=== PATIENT | female | born 2005 | race Caucasian/White ===

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

== ENCOUNTER 2024-10-04 09:45 | Emergency (ER) | payer MEDICAID, SELFPAY ==
[2024-10-04] VITALS (12 sets, daily range): BP systolic 103–115; BP diastolic 66–84; PULSE 72–103; RESP 16–23; TEMP 36.5; O2SAT 98–100
--- NOTE | 2024-10-04 10:15 | W.ED.GENAD ---
Discharge Plan Disposition Patient Disposition: Home Condition: Stable Discharge Details Clinical Impression: Pancreatitis Primary Care Provider: None,None ED Provider: Marina Daugherty Home Meds and New Rx's Prescriptions: Continued albuterol sulfate [Ventolin HFA] 90 mcg/actuation HFA aerosol inhaler 2 puff inhalation Q4H PRN (Reason: shortness of breath or wheezing) Qty: 8.5 2RF budesonide-formoterol [Symbicort] 160-4.5 mcg/actuation HFA aerosol inhaler 2 puff inhalation BID Qty: 10.2 0RF Rx Instructions: 2 puffs twice a day and can use as needed prior to sports or for shortness of breath No Action (DME) Aerochamber MV Spacer See Rx Instructions .ROUTE .MEDSUPPLY Qty: 1 0RF Rx Instructions: As directed amitriptyline 10 mg tablet 10 mg PO QHS Qty: 30 0RF cyproheptadine 4 mg tablet 4 mg PO QHS Qty: 60 0RF Rx Instructions: Take 1 tab daily at night magnesium oxide 200 mg magnesium tablet 200 mg PO BID Qty: 60 2RF Rx Instructions: Take 1 tab twice daily rizatriptan 5 mg tablet 5 mg PO ONCE Qty: 14 0RF Rx Instructions: Take 1 tab at onset of headache, max 1 tab in 24 hours medroxyprogesterone [Depo-Provera] 150 mg/mL syringe 150 mg IM [id number] Qty: 1 2RF Discharge Instructions Instructions: Pancreatitis (DC) Additional Instructions: You were seen in the emergency department today for evaluation of abdominal pain, and were found on your laboratory studies to have pancreatitis. You had a CT scan that was reassuring and did not show signs of gallstones, which is one of the common causes of pancreatitis. The other common causes alcohol. I recommend that you avoid alcohol intake, and you may wish to trial a clear liquid diet for the next few days, especially if you find the eating other foods causes you too much pain. It is very important that you stay well-hydrated, please use water, juice, sports drinks, etc. You should utilize Tylenol to manage your pain, and can take 2 tablets of regular strength or extra strength Tylenol every 6 hours. Please do not exceed 4000 mg of Tylenol in a 24-hour period. I provided you with a refill of your inhalers and you have a referral to establish with a primary care provider here in this area. You should contact them to schedule a follow-up visit to discuss this visit and any symptoms that change, worsen, or persist. You can return to the emergency department for fever or chills, sudden or severe change or worsening of your abdominal pain, or nausea and vomiting that prevents you from maintaining your hydration. Thank you for allowing us to be part of your care. Discharge Data Discharge Date/Time-TO BE ENTERED AT DEPARTURE: 10/04/24 11:51 HPI General Mode of arrival: ambulatory. Date/Time Provider Initiated Documentation: 10/04/24 09:46. Limitations to Documentation: no limitations. Information obtained by: patient, family and old records reviewed. HPI Narrative: This is a 19-year-old female patient with a past medical history significant for mild persistent asthma, ADHD, presenting for evaluation of abdominal pain. The patient reports that she has had pain similar to this, which is located in her left upper quadrant for about a year. She reports that she went to a hospital and was diagnosed with GERD/abdominal ulcers, was started on Prilosec. She states that she felt quite well after that visit but stopped taking the medication after some time. She reports that 4 days ago her pain returned in that area, it feels very similar to her past pain. She has tried marijuana for management of the pain to good effect, states that eating seems to make it worse. She reports no associated symptoms such as nausea, vomiting, fever, constipation, diarrhea, or dysuria. The pain does not radiate into her back, and is currently rated at a 4 out of 10. The patient and her partner are traveling, she states that she has had difficulty maintaining a regular primary care visit. She uses the Depo shot for prevention but does not think that she has had one in the last year. Related Data Home Medications ?Medication ?Instructions ?Recorded ?Confirmed inhalational spacing device #1 ea 05/09/22 10/04/24 (Aerochamber MV spacer) cyproheptadine 4 mg tablet 4 mg PO QHS #60 tabs 06/11/22 10/04/24 magnesium oxide 200 mg PO BID #60 tabs 06/11/22 10/04/24 rizatriptan 5 mg tablet 5 mg PO ONCE #14 tabs 06/19/22 10/04/24 amitriptyline 10 mg tablet 10 mg PO QHS #30 tabs 07/20/22 10/04/24 medroxyprogesterone 150 mg/mL 150 mg IM [id number] #1 mL 07/23/22 10/04/24 intramuscular syringe (Depo-Provera) albuterol sulfate 90 mcg/actuation 2 puff inhalation Q4H PRN 10/04/24 aerosol inhaler (Ventolin HFA) shortness of breath or wheezing #8.5 grams budesonide-formoterol HFA 160 2 puff inhalation BID #10.2 grams 10/04/24 mcg-4.5 mcg/actuation aerosol inhaler (Symbicort) Previous Rx's ?Medication ?Instructions ?Recorded inhalational spacing device #1 ea 05/09/22 (Aerochamber MV spacer) cyproheptadine 4 mg tablet 4 mg PO QHS #60 tabs 06/11/22 magnesium oxide 200 mg PO BID #60 tabs 06/11/22 rizatriptan 5 mg tablet 5 mg PO ONCE #14 tabs 06/19/22 amitriptyline 10 mg tablet 10 mg PO QHS #30 tabs 07/20/22 medroxyprogesterone 150 mg/mL 150 mg IM [id number] #1 mL 07/23/22 intramuscular syringe (Depo-Provera) albuterol sulfate 90 mcg/actuation 2 puff inhalation Q4H PRN 10/04/24 aerosol inhaler (Ventolin HFA) shortness of breath or wheezing #8.5 grams budesonide-formoterol HFA 160 2 puff inhalation BID #10.2 grams 10/04/24 mcg-4.5 mcg/actuation aerosol inhaler (Symbicort) Allergies Allergy/AdvReac Type Severity Reaction Status Date / Time methylphenidate Allergy Intermediate Unknown Verified 10/04/24 09:50 adhesive Allergy Mild Skin Rash Verified 10/04/24 09:50 General Stated Complaint: Abd Prob ALEXA: 3 Exam Narrative Exam Narrative: Gen: Awake and alert, in no apparent distress HEENT: Non-icteric sclera Neck: Supple Lungs: No apparent respiratory distress, normal respiratory effort. CV: Appears well perfused, heart with regular rate and rhythm, strong distal pulses Abdomen: Non-distended, soft, tender to palpation in the left upper quadrant without rigidity, rebound, or guarding. No overlying skin changes MSK: Moves 4 extremities without apparent limitation in ROM, no CVA tenderness Skin: Visualized skin without rashes, cyanosis. Neuro: Normal Gait, no obvious focal deficits or facial asymmetry. Speaks in full, clear sentences. Psych: Appropriate for situation. Course Vital Signs Vital signs: Vital Signs Temperature 36.5 C 10/04/24 09:46 Pulse 85 10/04/24 09:46 Respiratory Rate 16 10/04/24 09:46 Blood Pressure 107/66 10/04/24 09:46 Pulse Oximetry 98 10/04/24 09:46 Temperature 36.5 C 10/04/24 09:51 Temperature Source Oral 10/04/24 09:51 Pulse 85 10/04/24 09:51 Respiratory Rate 16 10/04/24 09:51 Blood Pressure 107/66 10/04/24 09:51 Pulse Oximetry 98 10/04/24 09:51 Medical Decision Making This is a 19-year-old female patient presenting for evaluation of abdominal pain. My differential includes, but is not limited to, gastritis/PUD, gastroenteritis, pancreatitis, cholecystitis and gallbladder pathology, hepatitis, appendicitis, diverticulitis. No surgical history nor constipation to increase my concern for small bowel obstruction. Considered urinary pathology including UTI, nephrolithiasis. Considered mesenteric ischemia, aortic pathology, though this is less concerning based on the patient's history and physical exam. Considered ectopic , PID/TOA, ovarian cyst, ovarian torsion. Overall, the patient appears quite comfortable and has a benign abdominal examination and reassuring vitals. We will provide her with a dose of Mylanta and obtain laboratory studies to include CBC, CMP, magnesium, lipase, urinalysis and urine . At this time I do not see indication based on her hemodynamic stability and history and exam to proceed with advanced imaging. - test negative, urinalysis noninfectious. I independently interpreted the laboratory studies, which show no significant leukocytosis, anemia, or thrombocytopenia. The chemistry panel is without evidence of electrolyte abnormality, kidney dysfunction, or liver injury. Her blood glucose is noted to be slightly low at 53, consistent with her reports that she has not yet eaten because it worsens her pain. Her lipase is quite elevated to 310, concerning for pancreatitis. For this reason we will proceed with CT imaging of her abdomen. I will also provide her with some Tylenol for some ongoing pain. The patient does report that she had a small alcoholic beverage on 02 October, states that she is not typically a drinker. She has no personal history of gallstones, though this is certainly a consideration. I reviewed her CT scan, which does not show any pancreatic abnormalities, gallstones or gallbladder wall thickening, some nonspecific bowel changes that may represent enteritis. Enteritis and pancreatitis remain my top differentials. On reassessment, the patient reports her pain is present but controlled, and she is not desiring of any other medications for management. She tolerated oral intake adequately, was provided with some juice given her slightly low blood glucose, though I am reassured by her preserved mentation. The patient is desiring of discharge to home, and I feel this is reasonable in this patient with mild pancreatitis, a benign abdominal examination, and the ability to tolerate p.o. intake. I counseled her on clear liquid diet and pain management, and provided her with a referral to establish with a primary care provider as her most recent provider is no longer practicing in this area. The patient's albuterol inhalers were also refilled for her, and she was counseled on return precautions to include fever or chills, worsening abdominal pain, or inability to tolerate p.o. At this time, the patient has had a full medical evaluation and is safe for discharge to home. They are hemodynamically stable, ambulatory, and tolerating PO. They are understanding of the follow-up plan and return precautions. They left our facility without incident. Marina Daugherty MD [facility] All Active Problems (Updated 10/04/24 @ 11:32 by Marina Daugherty MD) Pancreatitis (Chronic) Migraine headache (Chronic) Vocal cord dysfunction (Acute) per [facility] notes 2021 Iliotibial band tendonitis (Acute) Inattention (Acute) stopped strattera 05/2022 Mild persistent asthma (Acute) follows with [facility] at [facility] (no visit since 11/2021) Encounter for Depo-Provera contraception (Acute) Recurrent epistaxis (Acute) Insomnia (Acute) Deviated nasal septum (Acute) With mild spurring, to the right Hypertrophy of inferior nasal turbinate (Acute) Malocclusion due to mouth breathing (Acute) Medical History Anemia Anxiety Post-op bleeding Syncope Seen by neurology, cardiology, normal w/u has had normal brain MRI in 2020 Surgical History H/O tooth extraction History of tonsillectomy and adenoidectomy Family History Father Hyperlipidemia Neoplasm Social History (Updated 07/20/22 @ 08:10 by Lisa Mendez RN) Smoking/Tobacco Use Status: Never Second Hand Exposure: No Smoking risk assessment performed?: Yes Alcohol Intake: never Drug use: Daily Substance use type: marijuana Adopted: No Foster care: No Education Level: high school Details: [employer] 12th grade - 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
[2024-10-04] MEDS: Mylanta Suspension 30 ML CUP 20 ML PO (10:25)
[2024-10-04 10:27] LABS: Abs Immature Grans 0.01 10^3/uL (0.0-0.06); HCT 42.0 % (36.0-46.0); HGB 14.2 g/dL (11.2-15.7); Immature Grans % 0.1 %; MCH 30.6 pg (27.0-33.0); MCHC 33.8 % (32.0-36.0); MCV 91 fL (80-95); MPV 9.9 fL (8.0-11.0); Platelet Count 238 10^3/uL (130-400); RBC 4.64 10^6/uL (3.93-5.22); RDW 11.9 % (11.7-14.6); RDW-SD 39.8 fL; WBC 7.03 10^3/uL (4.4-10.8)
[2024-10-04 10:38] LABS: Glucose Negative (Negative)
[2024-10-04 10:43] LABS: ALT 17 U/L (14-59); AST 12 U/L (15-37); Albumin 4.0 g/dL (3.4-5.0); Alkaline Phosphatase 75 U/L (46-116); Anion Gap 6.6 mmol/L (3-11); BUN 7 mg/dL (7-18); Bilirubin, Total 0.4 mg/dL (0.2-1.0); CO2 30.4 mmol/L (21.0-32.0); Calcium 9.3 mg/dL (8.5-10.1); Chloride 104 mmol/L (98-107); Estimated GFR 131.70 (mL/min/1.73m2); Glucose 53 mg/dL (74-106); Lipase 310 U/L (<78); Magnesium 1.8 mg/dL (1.8-2.4); Potassium 3.9 mmol/L (3.5-5.1); Sodium 141 mmol/L (136-145); Total Protein 7.5 g/dL (6.4-8.2)
--- NOTE | 2024-10-04 10:45 | DI.CT_ITS ---
Exam(s) CT ABDOMEN PELVIS W EXAM: CT ABDOMEN PELVIS W CLINICAL HISTORY: pancreatitis. TECHNIQUE: Imaging Protocol: Axial computed tomography images with coronal and sagittal reformatted images were created and reviewed CONTRAST MATERIAL: Intravenous: Omnipaque-350 100cc Oral: None COMPARISON: No exams were available for comparison FINDINGS: VISUALIZED LUNG BASES: No nodules nor pleural effusions evident. ABDOMEN: GI: There is no evidence of bowel obstruction, free air, nor abscess. There is abundant fecal material in the colon. No evidence of appendicitis nor diverticulitis.. There are loops of fluid filled nondilated small bowel loops in the abdomen-pelvis. LIVER: There are no focal hepatic lesions evident. No dilated intrahepatic ducts. GALLBLADDER/BILIARY: No obvious gallbladder pathology. CBD is not dilated. PANCREAS: No evidence of pancreatic mass nor dilatation of the pancreatic duct. SPLEEN: Spleen is not enlarged. No obvious intrasplenic lesions. Splenic and portal veins are patent. ADRENALS: There are no significant adrenal masses. KIDNEYS:No cysts evident. No solid renal masses. No calculi nor hydronephrosis.. ABDOMINAL AORTA: Abdominal aorta is not enlarged. LYMPH NODES:There is no retroperitoneal nor paraaortic adenopathy. ABDOMINAL WALL: No evidence of significant anterior abdominal wall nor inguinal hernia. PELVIS: GI: No evidence of appendicitis.No evidence of sigmoid diverticulitis. LYMPH NODES: There is no intrapelvic nor inguinal adenopathy. REPRODUCTIVE: Uterus is anteverted and appears age-appropriate. There is a 2 cm cyst in the left ovary which is probably dominant follicular cysts. No significant right adnexal findings. There is a small amount of fluid in the cul-de-sac which is probably female physiologic. URINARY BLADDER: No calculi nor obvious masses evident OSSEOUS: No fractures and no significant osseous lesions. Sacroiliac joints appear unremarkable. Bone density normal. No osseous lesions. IMPRESSION: 1. No CT evidence of pancreatitis, as per request. 2. Also no evidence of appendicitis nor diverticulitis. 3. There is a 2 cm cyst in the left ovary which is most probably benign physiologic follicular cyst. Small amount of fluid in the cul-de-sac is also most probably female physiologic. Preliminary virtual Radiology report was reviewed RADIATION DOSE DELIVERED: 320.37mGy.cm Total DLP DATA REPOSITORY: All CT scans at this facility are submitted to the National Radiology Data Registry (NRDR) Dose Index Registry (DIR) with the [employer] (ACR). RADIATION OPTIMIZATION: All CT scans at this facility use at least one of these dose optimization techniques: automated exposure control; mA and/or kV adjustment per patient size (includes targeted exams where dose is matched to clinical indication); or iterative reconstruction.
[2024-10-04] MEDS: Normal Saline - Diluent 50 ML VIAL IJ (11:03)
[2024-10-04] MEDS: Omnipaque 350 MG/ML 100 ML BTL 75 ML IJ (11:06)
[2024-10-04] MEDS: Acetaminophen 500 MG TAB 1000 MG PO (11:17)
--- NOTE | 2024-10-04 11:20 | DI.VRAD_ITS ---
PROCEDURE INFORMATION: Exam: CT Abdomen And Pelvis With Contrast Exam date and time: 10/04/2024 10:55 AM Age: 19 years old Clinical indication: Pain; Other: Pancreatitis TECHNIQUE: Imaging protocol: Computed tomography of the abdomen and pelvis with contrast. Contrast material: OMNIPAQUE 350; Contrast volume: 75 ml; Contrast route: INTRAVENOUS (IV); COMPARISON: CR XR CHEST 2V PA LATERAL 09/08/2020 5:22 PM FINDINGS: Liver: Normal. Gallbladder and biliary ducts: Normal. Pancreas: Normal. Spleen: Normal. Adrenal glands: Normal. No mass. Kidneys and ureters: Normal. Stomach and bowel: Several loops of nondilated, gas and fluid-filled small bowel, which is a nonspecific finding, but can be seen with enteritis. Appendix: No evidence of appendicitis. Intraperitoneal space: Small amount of pelvic free fluid, likely physiologic. Vasculature: Unremarkable. No abdominal aortic aneurysm. Lymph nodes: Unremarkable. No enlarged lymph nodes. Urinary bladder: Unremarkable as visualized. Reproductive: 19 mm left ovarian cyst. Bones/joints: No acute abnormality. Soft tissues: Normal. IMPRESSION: 1. Several loops of nondilated, gas and fluid-filled small bowel, which is a nonspecific finding, but can be seen with enteritis. 2. No evidence of acute pancreatitis. Dictated and Authenticated by: Emil Rojas MD. Orderin [facility] Feng Gray MD
== END 2024-10-04 11:51 | disposition home or self-care (01) ==
PROVIDERS: Emergency Provider Emergency Medicine
DX: K85.90 Acute pancreatitis without necrosis or infection, unspecified; R10.30 Lower abdominal pain, unspecified; Z87.09 Personal history of other diseases of the respiratory system
CPT/HCPCS: 99284; 99285; 81025; 36415; 80053; 83690; 74177; 81003; 83735; 85025; J3490

== ENCOUNTER 2024-10-05 22:17 | Emergency (ER) | payer MEDICAID, SELFPAY ==
[2024-10-05] VITALS (13 sets, daily range): BP systolic 101–138; BP diastolic 49–84; PULSE 68–84; RESP 16; TEMP 36; O2SAT 97–100
--- NOTE | 2024-10-05 22:24 | W.ED.GENAD ---
Discharge Plan Disposition Patient Disposition: Home Condition: Stable Discharge Details Clinical Impression: Abdominal pain Primary Care Provider: None,None ED Provider: Seth Peguero Meds and New Rx's Prescriptions: New famotidine 20 mg tablet 20 mg PO BID Qty: 20 0RF pantoprazole 40 mg tablet,delayed release (DR/EC) 40 mg PO DAILY Qty: 30 0RF Continued (DME) Aerochamber MV Spacer See Rx Instructions .ROUTE .MEDSUPPLY Qty: 1 0RF Rx Instructions: As directed amitriptyline 10 mg tablet 10 mg PO QHS Qty: 30 0RF cyproheptadine 4 mg tablet 4 mg PO QHS Qty: 60 0RF Rx Instructions: Take 1 tab daily at night magnesium oxide 200 mg magnesium tablet 200 mg PO BID Qty: 60 2RF Rx Instructions: Take 1 tab twice daily rizatriptan 5 mg tablet 5 mg PO ONCE Qty: 14 0RF Rx Instructions: Take 1 tab at onset of headache, max 1 tab in 24 hours medroxyprogesterone [Depo-Provera] 150 mg/mL syringe 150 mg IM [id number] Qty: 1 2RF albuterol sulfate [Ventolin HFA] 90 mcg/actuation HFA aerosol inhaler 2 puff inhalation Q4H PRN (Reason: shortness of breath or wheezing) Qty: 8.5 2RF budesonide-formoterol [Symbicort] 160-4.5 mcg/actuation HFA aerosol inhaler 2 puff inhalation BID Qty: 10.2 0RF Rx Instructions: 2 puffs twice a day and can use as needed prior to sports or for shortness of breath Discharge Instructions Instructions: Abdominal Pain, Adult ED Additional Instructions: You were seen for recheck due to abdominal pain. Your repeat laboratory studies tonight are much improved and your lipase is almost normal. 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 I would still stick with a liquid/bland diet as before. Reach back out to [facility] for follow-up. Return to ED for any new or worsening pain, fever, persistent vomiting, other concerns. Referrals: [facility] [Provider Group] HPI General Mode of arrival: ambulatory. Date/Time Provider Initiated Documentation: 10/05/24 22:24. Limitations to Documentation: no limitations. Information obtained by: patient and RN notes reviewed. HPI Narrative: Patient returns to ED with worsening abdominal pain after being diagnosed with pancreatitis here in the ED about 36 hours ago. She had presented with abdominal pain yesterday. Lipase was elevated above 300, CT scan was reassuring. Patient was discharged home to use acetaminophen for pain and liquid diet. Patient has remained on the diet as prescribed but got no relief with acetaminophen and began smoking marijuana to try to control the pain. She is unable to take NSAIDs as she has a clotting problem for which she cannot remember the name nor did she get it fully worked up. She does have a tendency to bleed however and was told to avoid NSAIDs. She has had no nausea vomiting or fever. He states that the pain is worse and more diffuse including into the back now. She is still making urine. She was crying this evening and was convinced to return to ED. Related Data Home Medications ?Medication ?Instructions ?Recorded ?Confirmed inhalational spacing device #1 ea 05/09/22 10/05/24 (Aerochamber MV spacer) cyproheptadine 4 mg tablet 4 mg PO QHS #60 tabs 06/11/22 10/05/24 magnesium oxide 200 mg PO BID #60 tabs 06/11/22 10/05/24 rizatriptan 5 mg tablet 5 mg PO ONCE #14 tabs 06/19/22 10/05/24 amitriptyline 10 mg tablet 10 mg PO QHS #30 tabs 07/20/22 10/05/24 medroxyprogesterone 150 mg/mL 150 mg IM [id number] #1 mL 07/23/22 10/05/24 intramuscular syringe (Depo-Provera) albuterol sulfate 90 mcg/actuation 2 puff inhalation Q4H PRN 10/04/24 10/05/24 aerosol inhaler (Ventolin HFA) shortness of breath or wheezing #8.5 grams budesonide-formoterol HFA 160 2 puff inhalation BID #10.2 grams 10/04/24 10/05/24 mcg-4.5 mcg/actuation aerosol inhaler (Symbicort) famotidine 20 mg tablet 20 mg PO BID #20 tabs 10/05/24 pantoprazole 40 mg tablet,delayed 40 mg PO DAILY #30 tabs 10/05/24 release Previous Rx's ?Medication ?Instructions ?Recorded inhalational spacing device #1 ea 05/09/22 (Aerochamber MV spacer) cyproheptadine 4 mg tablet 4 mg PO QHS #60 tabs 06/11/22 magnesium oxide 200 mg PO BID #60 tabs 06/11/22 rizatriptan 5 mg tablet 5 mg PO ONCE #14 tabs 06/19/22 amitriptyline 10 mg tablet 10 mg PO QHS #30 tabs 07/20/22 medroxyprogesterone 150 mg/mL 150 mg IM [id number] #1 mL 07/23/22 intramuscular syringe (Depo-Provera) albuterol sulfate 90 mcg/actuation 2 puff inhalation Q4H PRN 10/04/24 aerosol inhaler (Ventolin HFA) shortness of breath or wheezing #8.5 grams budesonide-formoterol HFA 160 2 puff inhalation BID #10.2 grams 10/04/24 mcg-4.5 mcg/actuation aerosol inhaler (Symbicort) famotidine 20 mg tablet 20 mg PO BID #20 tabs 10/05/24 pantoprazole 40 mg tablet,delayed 40 mg PO DAILY #30 tabs 10/05/24 release Allergies Allergy/AdvReac Type Severity Reaction Status Date / Time methylphenidate Allergy Intermediate Unknown Verified 10/05/24 22:25 adhesive Allergy Mild Skin Rash Verified 10/05/24 22:25 General Stated Complaint: Abd Prob ALEXA: 3 Exam Narrative Exam Narrative: Const: WDWN female in NAD. VS per triage. HEENT: NC/AT. Normal facial exam. Neck: Supple. Trachea midline. Lungs: Normal respiratory effort. Lungs are clear. Cor: RRR without murmur. Good radial pulses. GI: Soft/ND. Minimal epigastric tenderness. Neuro: A+O x 3. Normal speech, mentation, gait. Cranial nerves II - XII grossly intact. No gross motor or sensory deficit. Ext: No C/C/E. Course Vital Signs Vital signs: Vital Signs Temperature 96.8 F L 10/05/24 22:21 Pulse 84 10/05/24 22:21 Respiratory Rate 16 10/05/24 22:21 Blood Pressure 138/84 10/05/24 22:21 Pulse Oximetry 99 10/05/24 22:21 Temperature 96.8 F L 10/05/24 22:21 Temperature Source Tympanic 10/05/24 22:21 Pulse 84 10/05/24 22:21 Respiratory Rate 16 10/05/24 22:21 Blood Pressure 138/84 10/05/24 22:21 Blood Pressure Position Sitting 10/05/24 22:21 Pulse Oximetry 99 10/05/24 22:21 Oxygen Delivery Method Room Air 10/05/24 22:21 Oxygen Flow Rate 0 10/05/24 22:21 Medical Decision Making Patient returns to ED after diagnosis of pancreatitis yesterday. She received acetaminophen here and tried it once or twice at home with no help. Has been smoking marijuana which maybe has helped some. She has no nausea vomiting and has been able to tolerate a liquid diet but the pain has been worsening. She has had no fever that she is aware of. Urine and urinalysis yesterday were negative. CT scan was reassuring. Will place an IV and start fluids, give a small dose of morphine for pain control and recent laboratory studies. Patient's repeat laboratory studies much improved. Lipase is at 100. Per further discussion patient has had ulcer in the past. Currently not taking medications for same. Given a GI cocktail and IV famotidine. Will plan discharge on similar medication. She did receive a call from [facility] from her last visit as she does not have a PCP. Will encourage patient to reach out to them for follow-up. Return precautions provided. Medical Records Medical records reviewed: Yes I reviewed the patient's medical records. Medical records narrative: Yesterday's lab, CT, ED note. Lab Data Lab results reviewed: Yes I reviewed the patient's lab results. Lab results narrative: See [facility] All Active Problems (Updated 10/05/24 @ 23:40 by Seth Peguero MD) Abdominal pain (Acute) Pancreatitis (Chronic) Migraine headache (Chronic) Vocal cord dysfunction (Acute) per [facility] notes 2021 Inattention (Acute) stopped strattera 05/2022 Mild persistent asthma (Acute) follows with [facility] at [facility] [place] (no visit since 11/2021) Encounter for Depo-Provera contraception (Acute) Recurrent epistaxis (Acute) Insomnia (Acute) Deviated nasal septum (Acute) With mild spurring, to the right Hypertrophy of inferior nasal turbinate (Acute) Malocclusion due to mouth breathing (Acute) Medical History Anxiety Anemia Syncope Seen by neurology, cardiology, normal w/u has had normal brain MRI in 2020 Surgical History History of tonsillectomy and adenoidectomy H/O tooth extraction Family History Father Hyperlipidemia Neoplasm Social History Smoking/Tobacco Use Status: Never Second Hand Exposure: No Smoking risk assessment performed?: Yes Alcohol Intake: never Drug use: Daily Substance use type: marijuana Adopted: No Foster care: No Education Level: high school Details: [employer] 12th grade - 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
[2024-10-05 22:52] LABS: BE (Venous) 2 mmol/L (-2-3); HCO3 (Venous) 27 mmol/L (23-28); O2 Sat (Venous) 67 %; TCO2 (Venous) 25 mmol/L (24-29); pCO2 (Venous) 46 mmHg (41-51); pO2 (Venous) 36 mmHg
[2024-10-05 22:53] LABS: Abs Immature Grans 0.02 10^3/uL (0.0-0.06); HCT 38.6 % (36.0-46.0); HGB 13.0 g/dL (11.2-15.7); Immature Grans % 0.2 %; MCH 30.1 pg (27.0-33.0); MCHC 33.7 % (32.0-36.0); MCV 89 fL (80-95); MPV 9.7 fL (8.0-11.0); Platelet Count 222 10^3/uL (130-400); RBC 4.32 10^6/uL (3.93-5.22); RDW 11.7 % (11.7-14.6); RDW-SD 38.0 fL; WBC 9.51 10^3/uL (4.4-10.8)
[2024-10-05] MEDS: Lactated Ringers 1,000 ML 1000 ML IV (22:57)
[2024-10-05] MEDS: MORPHine 4 MG/ML SYR IVP (22:57)
[2024-10-05 23:15] LABS: ALT 18 U/L (14-59); AST 15 U/L (15-37); Albumin 4.0 g/dL (3.4-5.0); Alkaline Phosphatase 65 U/L (46-116); Anion Gap 11.3 mmol/L (3-11); BUN 7 mg/dL (7-18); Bilirubin, Total 0.5 mg/dL (0.2-1.0); CO2 25.7 mmol/L (21.0-32.0); Calcium 9.3 mg/dL (8.5-10.1); Chloride 103 mmol/L (98-107); Estimated GFR 131.70 (mL/min/1.73m2); Glucose 88 mg/dL (74-106); Lipase 100 U/L (<78); Magnesium 2.0 mg/dL (1.8-2.4); Potassium 3.5 mmol/L (3.5-5.1); Sodium 140 mmol/L (136-145); Total Protein 7.2 g/dL (6.4-8.2)
[2024-10-05] MEDS: Lidocaine 2% Viscous 15 ML CUP PO (23:34)
[2024-10-05] MEDS: Famotidine 20 MG/2 ML VIAL IVP (23:34)
[2024-10-05] MEDS: Mylanta Suspension 30 ML CUP PO (23:34)
== END 2024-10-06 00:01 | disposition home or self-care (01) ==
PROVIDERS: Emergency Provider Emergency Medicine
DX: K85.90 Acute pancreatitis without necrosis or infection, unspecified (principal)
CPT/HCPCS: 80053; 82805; 82962; 83690; 96374; 96375; 99284; 83605; 83735; 85025; J2270

== ENCOUNTER 2024-11-28 03:12 | Emergency (ER) | payer MEDICAID, SELFPAY ==
[2024-11-28] VITALS (79 sets, daily range): BP systolic 102–136; BP diastolic 56–105; PULSE 68–125; RESP 12–30; TEMP 37; O2SAT 96–100
[2024-11-28 03:56] LABS: Abs Immature Grans 0.03 10^3/uL (0.0-0.06); HCT 45.2 % (36.0-46.0); HGB 15.3 g/dL (11.2-15.7); Immature Grans % 0.2 %; MCH 29.6 pg (27.0-33.0); MCHC 33.8 % (32.0-36.0); MCV 87 fL (80-95); MPV 9.9 fL (8.0-11.0); Platelet Count 264 10^3/uL (130-400); RBC 5.17 10^6/uL (3.93-5.22); RDW 11.9 % (11.7-14.6); RDW-SD 38.2 fL; WBC 13.05 10^3/uL (4.4-10.8)
[2024-11-28] MEDS: Droperidol 5 MG/2 ML VIAL 1.25 MG IVP (03:57)
[2024-11-28] MEDS: Pantoprazole 40 MG VIAL IVP (03:57)
[2024-11-28] MEDS: Normal Saline 1,000 ML 1000 ML IV (03:57)
[2024-11-28] MEDS: MORPHine 10 MG/ML VIAL 6 MG IVP (03:58)
--- NOTE | 2024-11-28 04:05 | W.ED.GENAD ---
Discharge Plan Disposition Patient Disposition: Home Condition: Good Discharge Details Clinical Impression: Pancreatitis Primary Care Provider: None,None ED Provider: Jay Ignacio Meds and New Rx's Prescriptions: New ondansetron 4 mg tablet,disintegrating 4 mg PO Q8H PRNQty: 10 0RF No Action (DME) Aerochamber MV Spacer See Rx Instructions .ROUTE .MEDSUPPLY Qty: 1 0RF Rx Instructions: As directed amitriptyline 10 mg tablet 10 mg PO QHS Qty: 30 0RF cyproheptadine 4 mg tablet 4 mg PO QHS Qty: 60 0RF Rx Instructions: Take 1 tab daily at night magnesium oxide 200 mg magnesium tablet 200 mg PO BID Qty: 60 2RF Rx Instructions: Take 1 tab twice daily rizatriptan 5 mg tablet 5 mg PO ONCE Qty: 14 0RF Rx Instructions: Take 1 tab at onset of headache, max 1 tab in 24 hours medroxyprogesterone [Depo-Provera] 150 mg/mL syringe 150 mg IM [id number] Qty: 1 2RF albuterol sulfate [Ventolin HFA] 90 mcg/actuation HFA aerosol inhaler 2 puff inhalation Q4H PRN (Reason: shortness of breath or wheezing) Qty: 8.5 2RF budesonide-formoterol [Symbicort] 160-4.5 mcg/actuation HFA aerosol inhaler 2 puff inhalation BID Qty: 10.2 0RF Rx Instructions: 2 puffs twice a day and can use as needed prior to sports or for shortness of breath famotidine 20 mg tablet 20 mg PO BID Qty: 20 0RF pantoprazole 40 mg tablet,delayed release (DR/EC) 40 mg PO DAILY Qty: 30 0RF Discharge Instructions Instructions: Pancreatitis (DC) Additional Instructions: You have had an episode of pancreatitis again for unclear reasons. Sometimes this can be caused by a spasm in the drainage system of the pancreas. This usually causes a significant pain of short duration, but causes the enzymes that we measure to be elevated. Other causes could be an autoimmune process where your body is making its own antibodies against your pancreas. You do not seem to have common causes for pancreatitis such as alcohol misuse disorder or hypertriglyceridemia. Drink plenty of clear liquids to stay hydrated over the next 24 hours. If you tolerate clear liquids for 24 hours, you can begin your diet back with foods that are easy to digest such as toast, crackers, broth based soups, pasta, rice, apples, and bananas. If you tolerate this for 24 hours you can begin a more normal diet again. You can take two or three 325 mg acetaminophen tablets every 6 hours as needed for symptoms of pain. You can take one ondansetron ODT tablet every 8 hours as needed for symptoms of nausea and vomiting. This medication will dissolve under your tongue and does not necessarily be swallowed to be effective. I have prescribed it to the [facility] here in the [facility]. I have placed an ambulatory referral to the gastroenterology clinic through [facility]. They should be reaching out to you on the cell phone number provided to follow-up with you within the next week or so to see you in clinic in determine if they can figure out a cause and treatment for your intermittently recurrent pancreatitis. You should use the ciprofloxacin drops put in your eyes tonight, every 6 hours while you are awake, for the next 5 days. This should clear up the conjunctivitis that is causing the drainage from your eyes. You can always return to the ER for any new concerns or sudden changes in your health which you feel require emergency medical attention Discharge Data Discharge Physician: Jay Ignacio [facility] General Date/Time Provider Initiated Documentation: 11/28/24 03:23. [facility] Narrative: The patient is a 19-year-old female, with a past medical history significant for asthma, ADHD, and prior peptic ulcer disease, who has been seen for her third visit in approximately 2 months with complaints of upper abdominal pain. The patient was seen at the beginning of September in relatively rapid succession and was found to have an elevated lipase level during her first admission with discharge from the emergency room, and a improving lipase level during her second admission to the emergency department from what she was also discharged. The patient tells me that she thinks she had pancreatitis the last time because she had a ulcer that was causing the inflammation in her pancreas. The patient tells me that she has been having vomiting without pain for 2 days, but began having recurrent severe upper abdominal discomfort tonight by about 30 minutes before presentation to the emergency room. The patient states that it is different from her prior episodes earlier last month when she came into the emergency room for admission. She states that this pain is sharp and stabbing in nature. The patient denies having any prior history of marijuana induced cyclic vomiting disorder. The patient does regularly use marijuana and acid. Related Data Home Medications ?Medication ?Instructions ?Recorded ?Confirmed inhalational spacing device #1 ea 05/09/22 11/28/24 (Aerochamber MV spacer) cyproheptadine 4 mg tablet 4 mg PO QHS #60 tabs 06/11/22 11/28/24 Held on 11/28/24. Instructions: Pt Stopped/Never Started magnesium oxide 200 mg PO BID #60 tabs 06/11/22 11/28/24 Held on 11/28/24. Instructions: Changed by Provider rizatriptan 5 mg tablet 5 mg PO ONCE #14 tabs 06/19/22 11/28/24 Held on 11/28/24. Instructions: Pt Stopped/Never Started amitriptyline 10 mg tablet 10 mg PO QHS #30 tabs 07/20/22 11/28/24 Held on 11/28/24. Instructions: Pt Stopped/Never Started medroxyprogesterone 150 mg/mL 150 mg IM [id number] #1 mL 07/23/22 11/28/24 intramuscular syringe (Depo-Provera) Held on 11/28/24. Instructions: Pt Stopped/Never Started albuterol sulfate 90 mcg/actuation 2 puff inhalation Q4H PRN 10/04/24 11/28/24 aerosol inhaler (Ventolin HFA) shortness of breath or wheezing #8.5 grams budesonide-formoterol HFA 160 2 puff inhalation BID #10.2 grams 10/04/24 11/28/24 mcg-4.5 mcg/actuation aerosol inhaler (Symbicort) famotidine 20 mg tablet 20 mg PO BID #20 tabs 10/05/24 11/28/24 Held on 11/28/24. Instructions: Pt Stopped/Never Started pantoprazole 40 mg tablet,delayed 40 mg PO DAILY #30 tabs 10/05/24 11/28/24 release Held on 11/28/24. Instructions: Pt Stopped/Never Started ondansetron 4 mg disintegrating 4 mg PO Q8H PRN #10 tabs 11/28/24 tablet Previous Rx's ?Medication ?Instructions ?Recorded inhalational spacing device #1 ea 05/09/22 (Aerochamber MV spacer) cyproheptadine 4 mg tablet 4 mg PO QHS #60 tabs 06/11/22 Held on 11/28/24. Instructions: Pt Stopped/Never Started magnesium oxide 200 mg PO BID #60 tabs 06/11/22 Held on 11/28/24. Instructions: Changed by Provider rizatriptan 5 mg tablet 5 mg PO ONCE #14 tabs 06/19/22 Held on 11/28/24. Instructions: Pt Stopped/Never Started amitriptyline 10 mg tablet 10 mg PO QHS #30 tabs 07/20/22 Held on 11/28/24. Instructions: Pt Stopped/Never Started medroxyprogesterone 150 mg/mL 150 mg IM [id number] #1 mL 07/23/22 intramuscular syringe (Depo-Provera) Held on 11/28/24. Instructions: Pt Stopped/Never Started albuterol sulfate 90 mcg/actuation 2 puff inhalation Q4H PRN 10/04/24 aerosol inhaler (Ventolin HFA) shortness of breath or wheezing #8.5 grams budesonide-formoterol HFA 160 2 puff inhalation BID #10.2 grams 10/04/24 mcg-4.5 mcg/actuation aerosol inhaler (Symbicort) famotidine 20 mg tablet 20 mg PO BID #20 tabs 10/05/24 Held on 11/28/24. Instructions: Pt Stopped/Never Started pantoprazole 40 mg tablet,delayed 40 mg PO DAILY #30 tabs 10/05/24 release Held on 11/28/24. Instructions: Pt Stopped/Never Started ondansetron 4 mg disintegrating 4 mg PO Q8H PRN #10 tabs 11/28/24 tablet Allergies Allergy/AdvReac Type Severity Reaction Status Date / Time methylphenidate Allergy Intermediate Unknown Verified 11/28/24 03:24 adhesive Allergy Mild Skin Rash Verified 11/28/24 03:24 NSAIDS (Non-Steroidal AdvReac Severe Contraindic Verified 11/28/24 03:24 Anti-Inflamma ated General Stated Complaint: Abd Prob ALEXA: 3 Exam Const General: cooperative, acute distress mild, disheveled and intoxicated appearing Resp Effort & Inspection: normal respiratory effort and able to speak in complete sentences Auscultation: clear to auscultation bilaterally Cardio Rate: tachycardic Rhythm: regular rhythm Heart Sounds: S1 normal and S2 normal GI Palpation: soft and tender in the epigastrum Auscultation: normal bowel sounds Skin General skin exam: no rashes or lesions noted and turgor normal Lesions: no lesions Neuro General: patient alert, patient awake, patient oriented x3, moves all extremities, normal light touch, pain and propioception, no focal motor deficits and CN's II-XI intact bilaterally Psych Appearance: disheveled Mood: anxious mood Course Vital Signs Vital signs: Vital Signs Pulse 125 H 11/28/24 03:17 Respiratory Rate 24 11/28/24 03:17 Blood Pressure 136/83 11/28/24 03:17 Pulse Oximetry 98 11/28/24 03:17 Temperature 37 C 11/28/24 03:20 Pulse 125 H 11/28/24 03:17 Respiratory Rate 24 11/28/24 03:17 Blood Pressure 136/83 11/28/24 03:17 Blood Pressure Position Sitting 11/28/24 03:17 Pulse Oximetry 98 11/28/24 03:17 Oxygen Delivery Method Room Air 11/28/24 03:17 Oxygen Flow Rate 0 11/28/24 03:17 Pain Level 10 11/28/24 03:20 Lab/Test Results Lab/Test Results: Laboratory Tests Range/Units 11/28/24 03:35 WBC (4.4-10.8) 10^3/uL 13.05 H RBC (3.93-5.22) 10^6/uL 5.17 Hgb (11.2-15.7) g/dL 15.3 Hct (36.0-46.0) % 45.2 MCV (80-95) fL 87 MCH (27.0-33.0) pg 29.6 MCHC (32.0-36.0) % 33.8 RDW (11.7-14.6) % 11.9 Plt Count (130-400) 10^3/uL 264 MPV (8.0-11.0) fL 9.9 Immature Gran % % 0.2 Neutrophils % % 67.6 Lymphocytes % % 19.5 Monocytes % % 9.5 Eosinophils % % 2.1 Basophils % % 1.1 Nucleated RBC % (0.0-0.3) % 0.0 Absolute Neutrophils (1.2-6.7) 10^3/uL 8.82 H Absolute Lymphocytes (1.2-3.4) 10^3/uL 2.54 Absolute Monocytes (0.1-0.8) 10^3/uL 1.24 H Absolute Eosinophils (0.0-0.7) 10^3/uL 0.27 Absolute Basophils (0.0-0.2) 10^3/uL 0.14 Medical Decision Making The patient was seen and examined. She did have a significantly elevated lipase level approximately 2 months ago here in the emergency room which improved over the arc of a few days, noted by a recurrent visit with decreasing lipase level. The patient states that she thinks that this is all part of her peptic ulcer disease. The patient does routinely use illicit drugs, including marijuana, but does not think that she has ever had a cyclic vomiting episode in the past with marijuana use. The patient has upper abdominal tenderness but no signs of peritonitis on her clinical examination. The patient will have labs appropriate to evaluate her epigastrium for pain, will be given medications for pain, nausea, and she will be hydrated here. Disposition depends on discovery of pathology and improvement in symptoms here in the emergency room. 0724 - The patient's workup is again negative for any acute findings to explain her pancreatitis. This may represent transient sphincter of oddi spasm or potentially an idiopathic autoimmune process. I have filled out an ambulatory referral form for this patient to gastroenterology at [facility]. The patient is doing well clinically here in the emergency room and is tolerating oral liquids without any difficulties. She has no pain currently. I recommended the patient take oral acetaminophen as needed for symptoms of pain. I will prescribe the patient some oral ondansetron to help with any nausea and vomiting she has. The patient will be provided with topical Cipro drops used here in the emergency room that she can instill in her eyes to alleviate her conjunctivitis over the next several days. She can follow-up with gastroenterology for ongoing workup and management. [facility] All Active Problems (Updated 11/28/24 @ 07:27 by Jay Ignacio MD) Pancreatitis (Chronic) Migraine headache (Chronic) Vocal cord dysfunction (Acute) per [facility] notes 2021 Inattention (Acute) stopped strattera 05/2022 Mild persistent asthma (Acute) follows with [facility] parra [place] [facility] [place] (no visit since 11/2021) Encounter for Depo-Provera contraception (Acute) Recurrent epistaxis (Acute) Insomnia (Acute) Deviated nasal septum (Acute) With mild spurring, to the right Hypertrophy of inferior nasal turbinate (Acute) Malocclusion due to mouth breathing (Acute) Medical History Anxiety Anemia Syncope Seen by neurology, cardiology, normal w/u has had normal brain MRI in 2020 Surgical History History of tonsillectomy and adenoidectomy H/O tooth extraction Family History Father Hyperlipidemia Neoplasm Social History Smoking/Tobacco Use Status: Never Second Hand Exposure: No Smoking risk assessment performed?: Yes Alcohol Intake: never Drug use: Daily Substance use type: marijuana Adopted: No Foster care: No Housing: house Education Level: high school Details: [employer] 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
[2024-11-28 04:21] LABS: ALT 18 U/L (14-59); AST 16 U/L (15-37); Albumin 5.1 g/dL (3.4-5.0); Alkaline Phosphatase 74 U/L (46-116); Anion Gap 11.7 mmol/L (3-11); BUN 13 mg/dL (7-18); Bilirubin, Total 1.0 mg/dL (0.2-1.0); CO2 26.3 mmol/L (21.0-32.0); Calcium 10.5 mg/dL (8.5-10.1); Chloride 100 mmol/L (98-107); Estimated GFR 126.90 (mL/min/1.73m2); Glucose 94 mg/dL (74-106); Magnesium 2.0 mg/dL (1.8-2.4); Potassium 3.6 mmol/L (3.5-5.1); Sodium 138 mmol/L (136-145); Total Protein 9.0 g/dL (6.4-8.2); Troponin I 4 ng/L (<or=51)
[2024-11-28 04:26] LABS: HCG Qual (Serum) Negative
[2024-11-28 04:39] LABS: Triglyceride 25 mg/dL (<150)
[2024-11-28 05:09] LABS: Lipase 412 U/L (<78)
[2024-11-28] MEDS: Ciprofloxacin 0.3% 2.5 ML BTL OU (05:23)
[2024-11-28] MEDS: Omnipaque 350 MG/ML 100 ML BTL IJ (05:52)
[2024-11-28] MEDS: Normal Saline - Diluent 50 ML VIAL IJ (05:53)
[2024-11-28] MEDS: Normal Saline Flush 10 ML SYR IVP (05:53)
--- NOTE | 2024-11-28 05:53 | DI.CT_ITS ---
Exam(s) CT ABDOMEN PELVIS W EXAM: CT ABDOMEN PELVIS W CLINICAL HISTORY: recurrent pancreatitis TECHNIQUE: Imaging Protocol: Axial computed tomography images with coronal and sagittal reformatted images were created and reviewed. CONTRAST MATERIAL: Intravenous: Omnipaque 350 Contrast volume:75 mL Oral: No COMPARISON: CT CT ABDOMEN PELVIS W from 10/04/2024 FINDINGS: ABDOMEN: Lung Bases: No acute abnormality. Liver: Normal density. No measurable mass. Portal, Superior Mesenteric, and Splenic Veins: Unremarkable. Gallbladder and Biliary Tract: No radiodense calculus or dilation. Pancreas: Normal density, no abnormal calcifications or inflammatory process. Spleen: Normal. Adrenals: No masses seen. Kidneys: Normal size, contour and axis. No radiodense stones or obstructive uropathy. No masses seen. Abdominal Aorta: Abdominal portion non-dilated. Bowel: No obstruction or bowel wall thickening. Appendix is unremarkable. Peritoneal Cavity: No ascites, collection or mesenteric inflammatory response. No free air. Lymph Nodes: Within normal limits. Bones: Within normal limits for the patient's age. Soft Tissues: There is a nonspecific 2.3 x 0.9 cm area of decreased attenuation in the left iliopsoas muscle adjacent to the left acetabulum. No inflammatory changes are seen in the soft tissues. The muscle is otherwise unremarkable. This is an incidental finding. This may related to the left hip and represent a paralabral cyst. Other benign lesions cannot be excluded. Nonemergent MRI may be considered, if clinically appropriate. PELVIS: Bladder: Symmetric distention, no gross wall thickening. Reproductive Organs: There is a 1.4 cm corpus luteal cyst on the right ovary. The reproductive organs are otherwise unremarkable. Lymph Nodes: Within normal limits. Bones: Within normal limits for the patient's age. IMPRESSION: 1. No acute abdominal or pelvic process. 2. 1.4 cm right corpus luteal cyst. 3. No CT evidence to suggest acute pancreatitis. 4. Please see the above discussion for complete details. 5. The preliminary [facility] report was reviewed. Unexpected findings RADIATION DOSE DELIVERED: 289.24mGy.cm Total DLP DATA REPOSITORY: All CT scans at this facility are submitted to the National Radiology Data Registry (NRDR) Dose Index Registry (DIR) with the [employer] ([employer]). RADIATION OPTIMIZATION: All CT scans at this facility use at least one of these dose optimization techniques: automated exposure control; mA and/or kV adjustment per patient size (includes targeted exams where dose is matched to clinical indication); or iterative reconstruction.
--- NOTE | 2024-11-28 06:08 | DI.[facility]_ITS ---
PROCEDURE INFORMATION: Exam: CT Abdomen And Pelvis With Contrast Exam date and time: 11/28/2024 5:31 AM Age: 19 years old Clinical indication: Abdominal pain; Other: Stomach pain; Recurrent pancreatitis TECHNIQUE: Imaging protocol: Computed tomography of the abdomen and pelvis with contrast. Radiation optimization: All CT scans at this facility use at least one of these dose optimization techniques: automated exposure control; mA and/or kV adjustment per patient size (includes targeted exams where dose is matched to clinical indication); or iterative reconstruction. Contrast material: [id number]; Contrast volume: 75 ml; Contrast route: INTRAVENOUS (IV); COMPARISON: CT ABDOMEN PELVIS W 10/04/2024 10:55 AM FINDINGS: Limitations: Mild motion artifact. Liver: No focal hepatic lesion identified. Gallbladder and biliary ducts: No radiodense gallbladder calculi seen. Pancreas: No CT evidence for acute pancreatitis. Spleen: No splenomegaly. Adrenal glands: No mass. Kidneys and ureters: No hydronephrosis or evidence for pyelonephritis. Stomach and bowel: No intestinal obstruction is appreciated. Appendix: No evidence of appendicitis. Intraperitoneal space: No free air. Vasculature: No abdominal aortic aneurysm. Lymph nodes: Nonspecific mesenteric and retroperitoneal lymph nodes. Urinary bladder: Distended urinary bladder. Reproductive: Central hypodensity in the uterus, likely secretory phase endometrium. Small right ovarian corpus luteum cyst. Small low-density foci in the ovaries attributed to physiologic change/follicles. Bones/joints: No pertinent acute abnormality seen. Soft tissues: No pertinent acute abnormality seen. IMPRESSION: 1. No acute findings to explain reported symptoms. 2. Nonacute findings as outlined above. Dictated and Authenticated by: Marjorie Lozano MD. Orderin Mateus Thompson MD
[2024-11-28 07:45] LABS: Glucose Negative (Negative)
--- NOTE | 2024-11-28 09:52 | ED.FU.B_ITS ---
Follow Up Plan: This patient was seen earlier today. Unfortunately her prescription for ondansetron could not be filled as her providers Medicaid authorization r eportedly did not work. I authorized her ondansetron prescription.
--- NOTE | 2024-11-28 10:01 | NUR.NOTE ---
Referral faxed to [facility] Gastroenterology and Hepatology done per Dr. Ignacio. [facility] referral form, labs, DI reports and demographic sheet faxed. DI images pushed. For recurrent pancreatitis, non alcoholic and hypertriglyceridemia. Nursing Note:
== END 2024-11-28 07:46 | disposition home or self-care (01) ==
PROVIDERS: Emergency Provider Emergency Medicine Emergency Medical Services
DX: K85.90 Acute pancreatitis without necrosis or infection, unspecified (principal); R10.13 Epigastric pain
CPT/HCPCS: 36415; 80053; 83690; 96361; 96374; 96375; 99285; 74177; 80320; 81003; 83735; 84478; 84484; 84703; 85025; 99284; J1790; J2270; J2470; J3490

== ENCOUNTER 2024-12-25 02:05 | Emergency (ER) | payer SELFPAY ==
[2024-12-25 01:58] VITALS: BP 113/100; PULSE 56; RESP 19; TEMP 37.3; O2SAT 96
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
== END 2024-12-25 02:47 | disposition home or self-care (01) ==
PROVIDERS: Emergency Provider Student in an Organized Health Care Education/Training Program
DX: R45.851 Suicidal ideations (principal); Z63.0 Problems in relationship with spouse or partner
CPT/HCPCS: 99283; 99285